=== PATIENT | female | born 1950 | race Caucasian/White ===

== ENCOUNTER 2017-06-25 17:13 | Emergency (ER) | payer OTHER ==
[~2017-06-25] VITALS: Ht 157.5 cm; Wt 77.7 kg
[~2017-06-25 17:13] MED LIST: CHOL100010 PO; ESOM20CA PO; TPRSR50 PO
[2017-06-25 17:40] VITALS: TEMP 36.7; Ht 157.5 cm; Wt 77.7 kg
--- NOTE | 2017-06-25 18:48 | EMERGENCY ROOM VISIT NOTE ---
History Report prepared by Porfirio: Govind Mendoza Under the Supervision of: Dr. Wenceslao Montero M.D. First contact with patient: 18:36 Chief Complaint: BACK PAIN Stated Complaint: DISCOMFORT IN BACK History of Present Illness The patient is a 67 year old female with a history of hypertension who presents to the Emergency Room with complaints of persistent back and neck pain that started 5 days ago. She says that she was not able to take her blood pressure medication for a couple days since it was being mailed to her, but has been back on the medication for 5 days. The patient states that she started feeling unwell 5 days ago with the back and neck pain, in addition to a bit of a cough. She adds that she has been feeling intermittently warm with sweating. She notes that she has still been having an elevated blood pressure. The patient says that she wants to make sure she has not been having a stroke. The patient notes that she was seen here for shoulder pain before, and nothing abnormal was found. She denies any chest pain, fevers, chills, abdominal pain, nausea, vomiting, shortness of breath, or urinary symptoms. The patient says that she has no history of heart problems, aneurysms, or dissections. She is not taking any blood thinners. She does take a thyroid medication and still has her thyroid. Source of History: patient Onset: 5 days ago Position: neck, back Quality: other (pain) Timing: other (persistent) Associated Symptoms: + diaphoresis, + cough, No fevers, No chills, No nausea , No vomiting, No abdominal pain, No urinary symptoms Note: Associated symptoms: Elevated blood pressure. Review of Systems See HPI for pertinent positives & negatives. A total of 10 systems reviewed and were otherwise negative. Past Medical & Surgical Medical Problems: (1) HTN (hypertension) Hypertension Family History Diabetes mellitus FH: heart disease Hypertension Social History Smoking Status: Never Smoker Alcohol Use: none Drug Use: none Marital Status: Housing Status: lives with family Occupation Status: employed Current/Historical Medications Scheduled Atorvastatin (Lipitor), 40 MG PO QPM Esomeprazole Magnesium (Nexium), 20 MG PO QPM Levothyroxine Sodium (Synthroid), 75 MCG PO QAM Metoprolol Succinate (Metoprolol Succinate ER), 50 MG PO QAM Allergies Coded Allergies: Diphenhydramine (Unverified Allergy, Unknown, SHAKY/LOOPY, 01/09/16) Physical Exam Vital Signs Date Time Temp Pulse Resp B/P (MAP) Pulse Ox O2 Delivery O2 Flow Rate FiO2 06/25/17 20:50 65 18 155/100 96 06/25/17 17:40 36.7 68 16 155/103 97 Room Air Physical Exam General: Well developed well nourished non ill-appearing middle-aged female in no acute distress, breathing comfortably on room air. Normal speech HEENT: Normal cephalic atraumatic. Pupils are equal round and reactive to light. Extraocular movements are intact. Oropharynx is pink with moist mucous membranes. No swelling of the mouth lips or tongue. Neck: Mild tenderness in muscles to lower neck into the thoracic area. Full range of motion. Chest: Clear to auscultation bilaterally. No wheezes or rhonchi. No increased work of breathing. Heart: regular rate and rhythm. Abdomen: Soft nontender, nondistended without rebound guarding or rigidity. Extremities: No cyanosis clubbing or edema. No calf tenderness or assymetry Spine/Back. Non tender to palpation. No CVA tenderness Skin: Good turgor without rashes. Neurologic exam: Cranial nerves two through 12 are intact. Motor and sensation are intact and symmetrical throughout. GCS of 15. Medical Decision & Procedures ER Provider Diagnostic Interpretation: X-ray results as stated below per interpretation by me and the radiologist: CHEST ONE VIEW PORTABLE CLINICAL HISTORY: CHEST PAIN dyspnea COMPARISON STUDY: 01/09/2016 FINDINGS: The bones soft tissues and hemidiaphragms are normal. The cardiomediastinal silhouette is normal. The lungs are clear. The pulmonary vasculature is normal. IMPRESSION: Negative chest. The above report was generated using voice recognition software. It may contain grammatical, syntax or spelling errors. Electronically signed by: Nikhil Finley M.D. 06/25/2017 7:23 PM Dictated Date/Time: 06/25/2017 7:23 PM Laboratory Results 06/25/17 19:05 Red Blood Count 4.67, Mean Corpuscular Volume 87.4, Mean Corpuscular Hemoglobin 30.6, Mean Corpuscular Hemoglobin Concent 35.0, Mean Platelet Volume 10.6, Neutrophils (%) (Auto) 51.7, Lymphocytes (%) (Auto) 40.8, Monocytes (%) (Auto) 6.4, Eosinophils (%) (Auto) 0.4, Basophils (%) (Auto) 0.4, Neutrophils # (Auto) 3.44, Lymphocytes # (Auto) 2.72, Monocytes # (Auto) 0.43, Eosinophils # (Auto) 0.03, Basophils # (Auto) 0.03 06/25/17 19:05 Test 06/25/17 19:05 06/25/17 19:16 White Blood Count 6.67 K/uL (4.8-10.8) Red Blood Count 4.67 M/uL (4.2-5.4) Hemoglobin 14.3 g/dL (12.0-16.0) Hematocrit 40.8 % (37-47) Mean Corpuscular Volume 87.4 fL (80-100) Mean Corpuscular Hemoglobin 30.6 pg (25-34) Mean Corpuscular Hemoglobin Concent 35.0 g/dl (32-36) Platelet Count 217 K/uL (130-400) Mean Platelet Volume 10.6 fL (7.4-10.4) Neutrophils (%) (Auto) 51.7 % Lymphocytes (%) (Auto) 40.8 % Monocytes (%) (Auto) 6.4 % Eosinophils (%) (Auto) 0.4 % Basophils (%) (Auto) 0.4 % Neutrophils # (Auto) 3.44 K/uL (1.4-6.5) Lymphocytes # (Auto) 2.72 K/uL (1.2-3.4) Monocytes # (Auto) 0.43 K/uL (0.11-0.59) Eosinophils # (Auto) 0.03 K/uL (0-0.5) Basophils # (Auto) 0.03 K/uL (0-0.2) RDW Standard Deviation 41.2 fL (36.4-46.3) RDW Coefficient of Variation 12.8 % (11.5-14.5) Immature Granulocyte % (Auto) 0.3 % Immature Granulocyte # (Auto) 0.02 K/uL (0.00-0.02) Anion Gap 7.0 mmol/L (3-11) Est Creatinine Clear Calc Drug Dose 52.7 ml/min Estimated GFR () 67.5 Estimated GFR (Non- 58.3 BUN/Creatinine Ratio 8.7 (10-20) Calcium Level 8.9 mg/dl (8.5-10.1) Total Bilirubin 0.5 mg/dl (0.2-1) Direct Bilirubin 0.1 mg/dl (0-0.2) Aspartate Amino Transf (AST/SGOT) 21 U/L (15-37) Alanine Aminotransferase (ALT/SGPT) 24 U/L (12-78) Alkaline Phosphatase 61 U/L (45-117) Total Protein 7.7 gm/dl (6.4-8.2) Albumin 3.9 gm/dl (3.4-5.0) Lipase 87 U/L (73-393) Thyroid Stimulating Hormone (TSH) 3.080 uIu/ml (0.300-4.500) Bedside Troponin I < 0.030 ng/ml (0-0.045) Laboratory studies as stated above per my review. ECG Indication: other (high blood pressure) Rate (beats per minute): 63 Rhythm: normal sinus Findings: no acute ischemic change, no ectopy Change: no significant change (compared to January 13 2016) ED Course 183: Past medical records reviewed. The patient was evaluated in room B9, and a complete history and physical examination were performed. 1999: I reevaluated the patient and she is resting comfortably. 2024: Upon reevaluation, the patient is resting comfortably. I discussed the results and treatment plan with her. She verbalized agreement of the treatment plan. The patient was discharged home. Medical Decision Differentials include but are not limited to: high blood pressure, cardiac disease, musculoskeletal, aortic disease, infection, electrolyte or metabolic abnormality. This patient comes in as described above. She's had vague feelings of not feeling well over the weekend . She has some mild neck pain into her upper back. She's had this before when her blood pressure got high. In triage, she is only 150 systolic with a diastolic is moderately elevated. She does not recall what blood pressure medicine she is on. She has no chest pain. EKG was obtained and was unremarkable. She is non-ill appearing. Chest x-ray does not show any acute findings. There is a normal appearing aortic knob. I do not think is likely related to her aorta. She has no acute electrolyte or metabolic abnormality to suggest infection. This could be related to her blood pressure could be more of flu-like or musculoskeletal problem. She feels good and would like to go home. I Encouraged her to have close follow-up with her doctor next 1-2 days and have her blood pressure rechecked. Return if: increasing pain, numbness or weakness, fever or chills, any new problems or concerns. She was happy with plan and discharged to home. Medication Reconcilliation Current Medication List: was personally reviewed by me Blood Pressure Screening Patient's blood pressure: Elevated blood pressure Blood pressure disposition: Referred to PCP Impression Primary Impression: Back pain Additional Impression: HTN (hypertension) Scribe Attestation The scribe's documentation has been prepared under my direction and personally reviewed by me in its entirety. I confirm that the note above accurately reflects all work, treatment, procedures, and medical decision making performed by me. Departure Information Dispostion Home / Self-Care Referrals No Doctor, Assigned (PCP) Mitchell ToddD.O. Patient Instructions [facility] Additional Instructions Rest Return if: worsening of symptoms, increasing pain, numbness or weakness, fever or chills, any new problems or concerns. May use ibuprofen 400 mg every 6 hours, take with food Follow-up with your doctor this week for recheck and blood pressure recheck. You may ultimately need her blood pressure medication adjusted Problem Qualifiers
[2017-06-25 19:25] LABS: BASO % 0.4 %; BASO ABS # 0.03 K/uL (0-0.2); COMPLETE YES; EOS % 0.4 %; HEMATOCRIT 40.8 % (37-47); IG% 0.3 %; LYMPH % 40.8 %; LYMPH ABS # 2.72 K/uL (1.2-3.4); MEAN CELL VOLUME 87.4 fL (80-100); MEAN CORPUSCULAR HEMOGLOBIN 30.6 pg (25-34); MEAN PLATELET VOLUME 10.6 fL (7.4-10.4); MONO % 6.4 %; NEUT % 51.7 %; PLATELET COUNT 217 K/uL (130-400); RED BLOOD COUNT 4.67 M/uL (4.2-5.4); WHITE BLOOD COUNT 6.67 K/uL (4.8-10.8)
--- NOTE | 2017-06-25 19:25 | DIAGNOSTIC IMAGING REPORT ---
CHEST ONE VIEW PORTABLE CLINICAL HISTORY: CHEST PAIN dyspnea COMPARISON STUDY: 01/09/2016 FINDINGS: The bones soft tissues and hemidiaphragms are normal. The cardiomediastinal silhouette is normal. The lungs are clear. The pulmonary vasculature is normal. IMPRESSION: Negative chest. The above report was generated using voice recognition software. It may contain grammatical, syntax or spelling errors. Electronically signed by: Nikhil Finley M.D. 06/25/2017 7:23 PM Dictated Date/Time: 06/25/2017 7:23 PM
[2017-06-25] MEDS ORDERED: TPRSR/50 PO (19:26)
[2017-06-25] MEDS ORDERED: SYN75 PO (19:35)
[2017-06-25] MEDS ORDERED: ATOR-24 PO (19:35)
[2017-06-25 19:40] LABS: BUN/CREATININE RATIO 8.7 (10-20); CALCIUM 8.9 mg/dl (8.5-10.1); POTASSIUM 3.6 mmol/L (3.5-5.1)
[2017-06-25 19:53] LABS: THYROID STIMULATING HORMONE 3.08 uIu/ml (0.300-4.500)
[2017-06-25 20:50] VITALS: BP 155/100; PULSE 65; O2SAT 96
== END 2017-06-25 21:31 | disposition home or self-care (01) ==
LOC: C.EDB 17:14
DX: M54.9 Dorsalgia, unspecified (principal); I10 Essential (primary) hypertension; Z79.899 Other long term (current) drug therapy; Z82.49 Family history of ischemic heart disease and other diseases of the circulatory system; Z83.3 Family history of diabetes mellitus